=== PATIENT | male | born 1955 | race Caucasian/White ===

== ENCOUNTER 2021-11-17 14:10 | Inpatient (IN) | payer MEDICAID ==
[~2021-11-17] VITALS: Ht 154.9 cm; Wt 61.9 kg
[2021-11-17] MEDS: MECLIZINE 25MG TABLET PO NR (14:56)
[2021-11-17 15:06] LABS: BASOPHILS % 0.9 % (0.0-2.0); EOSINOPHILS % 0.3 % (0.0-5.0); HEMATOCRIT. 44.3 % (42.0-52.0); HEMOGLOBIN. 14.6 g/dL (14.0-18.0); LYMPHOCYTES % 25.3 % (20.0-50.0); MEAN CORPUSCULAR HEMOGLOBIN 26.2 pg (28.0-32.0); MEAN CORPUSCULAR VOLUME 79.4 fL (80.0-94.0); MEAN PLATELET VOLUME 8.5 fl (7.4-10.4); MONOCYTES % 6.9 % (2.0-8.0); NEUTROPHILS % 66.6 % (40.0-76.0); PLATELET 378 x1000/uL (130-400); RED BLOOD CELL COUNT 5.58 mill/uL (4.7-6.1); RED CELL DISTRIBUTION WIDTH 15.5 % (11.6-14.6)
[2021-11-17 15:14] LABS: CHLORIDE 105 mEq/L (98-107)
[2021-11-17 15:25] LABS: ETHANOL BLOOD < 10 mg/dL
[2021-11-17 16:09] LABS: *AMPHETAMINES SCREEN URINE NEGATIVE (NEGATIVE); *BARBITURATES SCREEN URINE NEGATIVE (NEGATIVE); *BENZODIAZEPINES SCREEN URINE NEGATIVE (NEGATIVE); *COCAINE SCREEN URINE NEGATIVE (NEGATIVE); CANNABINOID URINE SCREEN NEGATIVE (NEGATIVE); METHADONE URINE SCREEN NEGATIVE (NEGATIVE); OPIATES URINE SCREEN NEGATIVE (NEGATIVE); PHENCYCLIDINE URINE SCREEN NEGATIVE (NEGATIVE)
[2021-11-17] MEDS ORDERED: FUROSEMIDE 20MG/2ML VIAL IVP NR (16:15)
[2021-11-17] MEDS ORDERED: ASPIRIN 325MG EC TABLET PO ONE (17:45)
[2021-11-17] MEDS ORDERED: DOCUSATE SODIUM 100MG CAPSULE PO PRN (18:00)
[2021-11-17] MEDS ORDERED: ZOLPIDEM TARTRATE 5MG TABLET PO PRN (18:00)
[2021-11-17] MEDS ORDERED: IPRATROPIUM/ALBUTEROL 0.5-3(2.5)MG/3ML NEB NEB PRN (18:00)
[2021-11-17] MEDS ORDERED: ACETAMINOPHEN 325MG TABLET PO PRN ×2 (18:00)
[2021-11-17] MEDS ORDERED: MAGNESIUM/ALUMINUM HYDROXIDE/SIMETHICONE 30ML UDC PO PRN (18:00)
[2021-11-17] MEDS ORDERED: ONDANSETRON HCL 4MG/2ML INJ IV PRN (18:00)
[2021-11-17] MEDS ORDERED: GUAIFENESIN 200MG/10ML SUGAR FREE UDC PO PRN (18:00)
[2021-11-17] MEDS ORDERED: KETOROLAC 15MG/ML VIAL IV PRN (18:00)
[2021-11-17] MEDS ORDERED: NITROGLYCERIN 0.4MG TABLET SL SL PRN (18:00)
[2021-11-17] MEDS ORDERED: CLONIDINE 0.1MG TABLET PO PRN (18:00)
[2021-11-17 19:50] LABS: FOLIC ACID (FOLATE) SERUM 19.2 ng/mL (>5.38)
[2021-11-17] MEDS ORDERED: IOHEXOL-350 100 ML BOTTLE ONE (21:04)
[2021-11-17 22:07] VITALS: BP 154/96
[2021-11-17 22:11] VITALS: BP 154/96
[2021-11-17 23:28] LABS: CREATINE KINASE 41 IU/L (39-308); CREATINE KINASE MB FRACTION < 1.0 ng/mL (0.5-3.6)
[2021-11-17] MEDS: FAMOTIDINE 20MG TABLET PO SCH (23:53)
[2021-11-17] MEDS: SPIRONOLACTONE 25MG TABLET PO SCH (23:53)
[2021-11-17] MEDS: ENOXAPARIN 40MG/0.4ML SYR SUBCUT SCH (23:53)
[2021-11-17] MEDS: FUROSEMIDE 40MG/4ML VIAL IVP SCH (23:54)
[2021-11-18] VITALS: BP 125/80
[2021-11-18 04:00] VITALS: BP_SYST 122; BP_SYST 133; BP_DIAS 85; BP_DIAS 86
[2021-11-18 07:38] LABS: BASOPHILS % 0.3 % (0.0-2.0); EOSINOPHILS % 0.5 % (0.0-5.0); HEMATOCRIT. 48.7 % (42.0-52.0); HEMOGLOBIN. 16.1 g/dL (14.0-18.0); MEAN CORPUSCULAR VOLUME 78.9 fL (80.0-94.0); MONOCYTES % 7.4 % (2.0-8.0); NEUTROPHILS % 68.8 % (40.0-76.0); PLATELET 382 x1000/uL (130-400); RED BLOOD CELL COUNT 6.18 mill/uL (4.7-6.1); RED CELL DISTRIBUTION WIDTH 15.5 % (11.6-14.6)
[2021-11-18 07:49] LABS: CHLORIDE 99 mEq/L (98-107)
[2021-11-18 07:59] LABS: CREATINE KINASE 35 IU/L (39-308); CREATINE KINASE MB FRACTION < 1.0 ng/mL (0.5-3.6); PHOSPHORUS 4.4 mg/dL (2.5-4.9)
[2021-11-18 08:00] VITALS: BP 125/97
[2021-11-18] MEDS: ASPIRIN 325MG EC TABLET PO SCH (08:48)
[2021-11-18] MEDS: FUROSEMIDE 40MG/4ML VIAL IVP SCH ×2 (08:48→21:21)
[2021-11-18] MEDS: FAMOTIDINE 20MG TABLET PO SCH ×2 (08:48→21:20)
[2021-11-18] MEDS: SPIRONOLACTONE 25MG TABLET PO SCH ×2 (08:48→21:21)
[2021-11-18 12:00] VITALS: BP 130/88
[2021-11-18 16:00] VITALS: BP 128/65
[2021-11-18 20:00] VITALS: BP 122/78
[2021-11-18] MEDS: ENOXAPARIN 40MG/0.4ML SYR SUBCUT SCH (21:21)
[2021-11-19] VITALS: BP 113/83
[2021-11-19 04:00] VITALS: BP 114/78
[2021-11-19 08:00] VITALS: BP 119/82
[2021-11-19] MEDS: ASPIRIN 325MG EC TABLET PO SCH (09:15)
[2021-11-19] MEDS: FUROSEMIDE 40MG/4ML VIAL IVP SCH ×2 (09:15→20:46)
[2021-11-19] MEDS: FAMOTIDINE 20MG TABLET PO SCH ×2 (09:15→20:26)
[2021-11-19] MEDS: SPIRONOLACTONE 25MG TABLET PO SCH ×2 (09:15→20:26)
[2021-11-19 12:00] VITALS: BP 132/89
[2021-11-19 16:00] VITALS: BP 117/77
[2021-11-19 20:00] VITALS: BP 119/75
[2021-11-19] MEDS: ENOXAPARIN 40MG/0.4ML SYR SUBCUT SCH (20:26)
[2021-11-20] VITALS: BP 120/70
[2021-11-20 04:00] VITALS: BP 124/76
[2021-11-20 08:00] VITALS: BP 129/79
[2021-11-20] MEDS: FUROSEMIDE 40MG/4ML VIAL IVP SCH (09:15)
[2021-11-20] MEDS: ASPIRIN 325MG EC TABLET PO SCH (09:15)
[2021-11-20] MEDS: SPIRONOLACTONE 25MG TABLET PO SCH (09:15)
[2021-11-20] MEDS: FAMOTIDINE 20MG TABLET PO SCH (09:15)
[2021-11-20] MEDS ORDERED: AMLO5TAB4 MT (11:26)
[2021-11-20] MEDS ORDERED: ASPI-1406 MT (11:26)
[2021-11-20 12:00] VITALS: BP 130/80
[2021-11-20] MEDS ORDERED: POTASSIUM CHLORIDE 20MEQ TABLET SR PO ONE (13:00)
[2021-11-20] MEDS ORDERED: POTASSIUM CHLORIDE 20MEQ TABLET SR PO SCH (13:15)
[2021-11-20 16:00] VITALS: BP 133/76
[2021-11-20 16:39] VITALS: BP 133/76
== END 2021-11-20 17:10 | disposition home or self-care (01) | DRG 194 ==
LOC: ER 14:14 → 7EST 17:41 → EDBEDREQTM 17:47 → EDBEDREQ 17:47 → ENRESERV 20:38
PROVIDERS: ADMIT Internal Medicine; ATTEND Internal Medicine
DX: I50.33 Acute on chronic diastolic (congestive) heart failure (principal); R73.03 Prediabetes; Z86.73 Personal history of transient ischemic attack (TIA), and cerebral infarction without residual deficits
CPT/HCPCS: 36415; 70496; 70498; 70551; 71045; 80053; 80061; 80305; 80320; 82550; 82553; 82607; 82746; 83036; 83540; 83550; 83735; 83880; 84100; 84484; 85025; 93005; 93306; 93970; 99285; J1650; J1940; J8597; Q9967; G0480

== ENCOUNTER 2022-09-05 10:18 | Emergency (ER) | payer MEDICAID ==
[~2022-09-05] VITALS: Ht 160 cm; Wt 63.6 kg
[~2022-09-05 10:18] MED LIST: AMLO5TAB4 MT; ASPI-1406 MT
[2022-09-05 10:25] VITALS: BP 158/91
[2022-09-05 12:45] LABS: BASOPHILS % 1.1 % (0.0-2.0); EOSINOPHILS % 0.7 % (0.0-5.0); HEMATOCRIT. 42.9 % (42.0-52.0); LYMPHOCYTES % 16.6 % (20.0-50.0); MEAN CORPUSCULAR HEMOGLOBIN 25.3 pg (28.0-32.0); MEAN CORPUSCULAR VOLUME 77.4 fL (80.0-94.0); MEAN PLATELET VOLUME 7.7 fl (7.4-10.4); MONOCYTES % 6.5 % (2.0-8.0); NEUTROPHILS % 75.1 % (40.0-76.0); PLATELET 280 x1000/uL (130-400); RED BLOOD CELL COUNT 5.54 mill/uL (4.7-6.1); RED CELL DISTRIBUTION WIDTH 17.5 % (11.6-14.6)
[2022-09-05 13:01] LABS: CHLORIDE 107 mEq/L (98-107)
== END 2022-09-05 13:50 | disposition home or self-care (01) ==
LOC: ER 10:18
DX: K02.9 Dental caries, unspecified (principal); E11.9 Type 2 diabetes mellitus without complications
CPT/HCPCS: 36415; 80053; 85025; 99283

== ENCOUNTER 2023-05-14 09:56 | Emergency (ER) | payer MEDICAID ==
[~2023-05-14] VITALS: Ht 167.6 cm; Wt 72.0 kg
[2023-05-14 10:10] VITALS: BP 161/84; PULSE 84; RESP 20; TEMP 98.5; O2SAT 98
[2023-05-14] MEDS: FLUORESCEIN SODIUM 1MG/STRIP BOTHEYE ONE (12:00)
[2023-05-14] MEDS: TETRACAINE 0.5% OPHTH DROPS 4ML BOTHEYE ONE (12:00)
[2023-05-14] MEDS ORDERED: ERYT1OIN6 EACHEYE (12:49)
[2023-05-14] MEDS ORDERED: POLY15DR31 EACHEYE (12:49)
== END 2023-05-14 15:27 | disposition left against medical advice (07) ==
LOC: ER 09:56
DX: S01.112S Laceration without foreign body of left eyelid and periocular area, sequela (principal); X58.XXXS Exposure to other specified factors, sequela
CPT/HCPCS: 99283